=== PATIENT | male | born 1995 | race Caucasian/White ===

== ENCOUNTER 2018-11-24 10:19 | Day surgery (SDC) | payer BC, OTHER ==
[~2018-11-24] VITALS: Ht 182.9 cm; Wt 90.9 kg
[2018-11-24 10:53] VITALS: Ht 182.9 cm; Wt 90.9 kg
--- NOTE | 2018-11-24 11:06 | PREAC ---
Date/Time of Note Date/Time of Note DATE: 11/24/18 TIME: 11:05 Anesthesia Eval and Record Evaluation Time Pre-Procedure Interview DATE: 11/24/18 TIME: 11:05 Age 23 Sex male NPO: 8 hrs Preoperative diagnosis Rectal bleeding Planned procedure Colonoscopy Past Medical History Past Medical History: None Surgery & Anesthesia Issues No known issue Meds Anticoagulation: No Beta William within 24 hr: No Reason Beta William not given: Pt. not on B-William Reported Medications [None] No Conflict Check 11/24/18 Meds reviewed: Yes Allergies Coded Allergies: No Known Allergy (Unverified , 11/24/18) Allergies Reviewed: Yes Labs/Studies Labs Reviewed: Reviewed by anesthesiologist test: N/A Pre-procedure Exam Airway: Adequate mouth opening Mallampati: Mallampati I Teeth: Normal Lung: Normal Heart: Normal ASA Physical Status ASA physical status: 1 Emergency: None Planned Anesthetic General/MAC: MAC Planned Pain Management Parenteral pain med Pre-operative Attestations Prior to commencing anesthesia and surgery, the patient was re-evaluated, there was verification of: *The patient's identity *The results of appropriate recent lab work and preoperative vital signs *The above evaluation not changing prior to induction *Anesthetic plan, risk benefits, alternative and complications discussed with patient/family; questions answered; patient/family understands, accepts and wishes to proceed. ELIEL GUERIN MD Nov 24, 2018 11:05
[2018-11-24] MEDS ORDERED: PROPOFOL 20 ML ONE ×2 (11:10→11:33)
[2018-11-24 11:12] VITALS: BP 124/79; PULSE 79; RESP 25
[2018-11-24 11:58] VITALS: BP 117/72; PULSE 74; RESP 16
--- NOTE | 2018-11-24 12:06 | PAC ---
Date/Time of Note Date/Time of Note DATE: 11/24/18 TIME: 12:04 Post-Anesthesia Notes Post-Anesthesia Note Last documented vital signs Vital Signs Date Temp Pulse Resp B/P (MAP) Pulse Ox O2 O2 Flow FiO2 Time Delivery Rate 11/24/18 98.0 79 25 124/79 99 Room Air 11:12 (94) Activity: WNL Respiratory function: WNL Cardiovascular function: WNL Mental status: Baseline Pain reasonably controlled: Yes Hydration appropriate: Yes Nausea/Vomiting absent: Yes Comments BP: 117/72, HR: 74, SpO2: 99, BT: 98.5, RR:20 ELIEL GUERIN MD Nov 24, 2018 12:06
== END 2018-11-24 12:37 | disposition home or self-care (01) ==
LOC: GIL 10:19
PROVIDERS: ATTEND Internal Medicine Gastroenterology
DX: R19.4 Change in bowel habit (principal); K64.8 Other hemorrhoids
CPT/HCPCS: 45378; Z7610